=== PATIENT | female | born 1970 | race Caucasian/White ===

== ENCOUNTER 2020-08-14 19:28 | Inpatient (IN) ==
[2020-08-14] MEDS ORDERED: *HR* FentaNYL (PF) 100 MCG/2 ML VIAL ONE (19:41)
[2020-08-14] MEDS ORDERED: *HR* Midazolam HCl 2 MG/2 ML VIAL ONE (19:41)
[2020-08-14] MEDS ORDERED: Nitroglycerin 1,000 MCG/5 ML VIAL IV ONE (19:42)
[2020-08-14] MEDS ORDERED: ISOVUE-370 200 ML INFUS..BTL ONE ×2 (19:42→21:26)
[2020-08-14] MEDS ORDERED: Tirofiban 12.5 MG/250ML 12.5 MG/250 ML BAG ONE (19:42)
[2020-08-14] MEDS ORDERED: Heparin 1,000 UNITS/500 mL 500 ML ONE (19:42)
[2020-08-14] MEDS ORDERED: 0.9 % Sodium Chloride 2,000 ML ONE (19:42)
[2020-08-14] MEDS ORDERED: *HR* Heparin 10,000 UNIT/10 ML VIAL ONE (19:42)
[2020-08-14] MEDS ORDERED: Perflutren Lipid Microsphere 1.3 ML in 0.9 % Sodium Chloride 8.7 ML IVP PRN (20:37)
[2020-08-14] MEDS ORDERED: *HR* Amiodarone 150 MG/3 ML VIAL IVPB ONE (20:42)
[2020-08-14] MEDS ORDERED: Amiodarone Premix 360 MG/200 ML BAG IVC ONE (20:43)
[2020-08-14] MEDS ORDERED: Tirofiban 12.5 MG/250ML 12.5 MG/250 ML BAG IVC SCH (20:45)
[2020-08-14] MEDS: Amiodarone Premix 360 MG/200 ML BAG IVC ONE (20:57)
[2020-08-14] MEDS ORDERED: *HR* Atropine Sulfate 1 MG/10 ML SYRINGE ONE (21:09)
[2020-08-15] MEDS ORDERED: 0.9 % Sodium Chloride 1,000 ML ONE (00:48)
[2020-08-15] MEDS ORDERED: *HR* Atropine Sulfate 1 MG/10 ML SYRINGE ONE (00:49)
[2020-08-15] MEDS: Amiodarone Premix 360 MG/200 ML BAG IVC ONE (02:07)
[2020-08-15 04:11] LABS: Platelet Count 133 K/mcL (140-400)
[2020-08-15 04:13] LABS: Basophils # 0.1 K/mcL (0.0-0.2); Basophils % 0.6 %; Eosinophils # 0.1 K/mcL (0.0-0.6); Eosinophils % 1.5 %; Hematocrit 44.8 % (35.3-44.9); Hemoglobin 14.7 g/dL (11.5-15.4); Immature Granulocytes % 0.2 % (0-4); Immature Platelets 6.5 % (1.1-6.1); Lymphocytes # 2.9 K/mcL (0.6-4.6); Lymphocytes % 36.1 %; Mean Corpuscular HGB Conc 32.8 g/dL (31.6-35.5); Mean Corpuscular Hemoglobin 29.7 pg (28.0-33.3); Mean Corpuscular Volume 90.5 fL (83.0-100.0); Mean Platelet Volume 11.3 fL (9.4-12.4); Monocytes # 0.6 K/mcL (0.0-1.3); Monocytes % 6.9 %; Neutrophils # 4.4 K/mcL (1.6-8.9); Red Blood Count 4.95 M/mcL (3.82-4.97); Red Cell Distribution Width 13.3 % (11.5-14.5); Segmented Neutrophils % 54.7 %; White Blood Count 8.1 K/mcL (4.3-11.1)
[2020-08-15 04:31] LABS: BUN/Creatinine Ratio 20 (6-26); Blood Urea Nitrogen 13 mg/dL (6-20); Calcium 9.1 mg/dL (8.6-10.3); Carbon Dioxide 24 mEq/L (23-29); Chloride 103 mEq/L (98-107); Glucose 339 mg/dL (70-105); Osmolality,Calculated 291 (280-300); Potassium 3.8 mEq/L (3.5-5.1); Sodium 134 mEq/L (136-145); eGFR For African Americans > 60 (> 60); eGFR For Non-African Americans > 60 (> 60)
[2020-08-15] MEDS ORDERED: D5% in Water 1,000 ML IVC PRN (08:18)
[2020-08-15] MEDS ORDERED: Dextrose Gel 15 GM/37.5 ML TUBE PO PRN ×2 (08:18)
[2020-08-15] MEDS ORDERED: *HR* Dextrose 50 % in Water (Vial) 50 ML VIAL IVP PRN (08:18)
[2020-08-15] MEDS: Insulin LISPRO 300 UNITS/3 ML VIAL SUBQ SCH ×3 (08:38→16:34)
[2020-08-15] MEDS ORDERED: Aspirin desensitization 1 mg/ml PO ONE ×3 (09:45)
[2020-08-15] MEDS ORDERED: Aspirin 81 MG TAB.CHEW PO ONE (09:45)
[2020-08-15] MEDS ORDERED: Aspirin desensitization 4 mg/ml PO ONE ×4 (09:45)
[2020-08-15] MEDS: Amiodarone Premix 360 MG/200 ML BAG IVC SCH ×2 (09:55→14:18)
[2020-08-15] MEDS ORDERED: methylPREDNISolone 125 MG/2 ML VIAL ONE (10:37)
[2020-08-15] MEDS ORDERED: Albuterol 2.5 MG/3 ML NEBULIZER ONE (10:37)
[2020-08-15] MEDS ORDERED: EPINEPHrine 1 MG/ML VIAL ONE (10:37)
[2020-08-15] MEDS: carvediloL 6.25 MG TABLET PO SCH (16:32)
[2020-08-15] MEDS: Gabapentin 400 MG CAPSULE PO SCH ×2 (16:33→19:54)
[2020-08-15] MEDS ORDERED: Insulin LISPRO 300 UNITS/3 ML VIAL SUBQ SCH (21:00)
[2020-08-16] MEDS ORDERED: COENZYME Q10 100 MG PO SCH (09:00)
[2020-08-16] MEDS ORDERED: carvediloL 6.25 MG TABLET PO SCH (09:00)
[2020-08-16] MEDS ORDERED: Aspirin 81 MG TAB.CHEW PO SCH (09:00)
[2020-08-16] MEDS ORDERED: *HR* Heparin 5,000 UNIT/ML VIAL SQ SCH (09:00)
[2020-08-16] MEDS ORDERED: Loratadine 10 MG TABLET PO SCH (09:00)
[2020-08-16] MEDS ORDERED: Cholecalciferol (D-3) 1,000 UNIT (25MCG) TABLET PO SCH (09:00)
[2020-08-16] MEDS: Gabapentin 400 MG CAPSULE PO SCH ×4 (09:03→20:27)
[2020-08-16] MEDS: Insulin LISPRO 300 UNITS/3 ML VIAL SUBQ SCH ×3 (09:07→15:57)
[2020-08-16 09:47] LABS: Hemoglobin 14.3 g/dL (11.5-15.4); Mean Platelet Volume 11.1 fL (9.4-12.4)
[2020-08-16 09:49] LABS: Basophils # 0.1 K/mcL (0.0-0.2); Basophils % 0.8 %; Eosinophils # 0.1 K/mcL (0.0-0.6); Eosinophils % 1.2 %; Hematocrit 44.2 % (35.3-44.9); Immature Granulocytes % 0.4 % (0-4); Immature Platelets 7.6 % (1.1-6.1); Lymphocytes # 2.3 K/mcL (0.6-4.6); Lymphocytes % 26.7 %; Mean Corpuscular HGB Conc 32.4 g/dL (31.6-35.5); Mean Corpuscular Hemoglobin 29.9 pg (28.0-33.3); Mean Corpuscular Volume 92.3 fL (83.0-100.0); Monocytes # 0.6 K/mcL (0.0-1.3); Neutrophils # 5.5 K/mcL (1.6-8.9); Platelet Count 116 K/mcL (140-400); Red Blood Count 4.79 M/mcL (3.82-4.97); Red Cell Distribution Width 13.2 % (11.5-14.5); Segmented Neutrophils % 63.9 %; White Blood Count 8.6 K/mcL (4.3-11.1)
[2020-08-16] MEDS ORDERED: D5% in Water 1,000 ML IVC PRN (09:55)
[2020-08-16] MEDS ORDERED: Perflutren Lipid Microsphere 1.3 ML in 0.9 % Sodium Chloride 8.7 ML IVP PRN (09:55)
[2020-08-16] MEDS ORDERED: *HR* Dextrose 50 % in Water (Vial) 50 ML VIAL IVP PRN (09:55)
[2020-08-16] MEDS ORDERED: Dextrose Gel 15 GM/37.5 ML TUBE PO PRN ×2 (09:55)
[2020-08-16 10:15] LABS: BUN/Creatinine Ratio 21 (6-26); Blood Urea Nitrogen 15 mg/dL (6-20); Carbon Dioxide 24 mEq/L (23-29); Chloride 99 mEq/L (98-107); Glucose 446 mg/dL (70-105); Magnesium 1.6 mg/dL (1.6-2.6); Osmolality,Calculated 294 (280-300); Potassium 3.8 mEq/L (3.5-5.1); Sodium 132 mEq/L (136-145); eGFR For African Americans > 60 (> 60); eGFR For Non-African Americans > 60 (> 60)
[2020-08-16] MEDS: carvediloL 6.25 MG TABLET PO SCH ×2 (15:55→19:12)
[2020-08-16] MEDS: *HR* Heparin 5,000 UNIT/ML VIAL SQ SCH (18:06)
[2020-08-16] MEDS ORDERED: Insulin LISPRO 300 UNITS/3 ML VIAL SUBQ SCH (21:00)
[2020-08-17 05:08] VITALS: BP 120/70
[2020-08-17] MEDS: *HR* Heparin 5,000 UNIT/ML VIAL SQ SCH (05:50)
[2020-08-17] MEDS ORDERED: Cholecalciferol (D-3) 1,000 UNIT (25MCG) TABLET PO SCH (09:00)
[2020-08-17] MEDS ORDERED: Loratadine 10 MG TABLET PO SCH (09:00)
[2020-08-17] MEDS ORDERED: Aspirin 81 MG TAB.CHEW PO SCH (09:00)
[2020-08-17] MEDS: carvediloL 6.25 MG TABLET PO SCH (10:24)
[2020-08-17] MEDS: Gabapentin 400 MG CAPSULE PO SCH (10:25)
[2020-08-17] MEDS: Insulin LISPRO 300 UNITS/3 ML VIAL SUBQ SCH ×2 (10:31→12:17)
== END 2020-08-17 12:30 | disposition home or self-care (01) | DRG 174 ==
LOC: ICNU
PROVIDERS: ADMIT Internal Medicine Cardiovascular Disease; ATTEND Internal Medicine Cardiovascular Disease

== ENCOUNTER 2021-01-29 13:50 | Inpatient (IN) ==
[2021-01-29 16:37] LABS: Basophils % 0.6 %; Eosinophils # 0.1 K/mcL (0.0-0.6); Eosinophils % 1.2 %; Hematocrit 44.9 % (35.3-44.9); Hemoglobin 14.4 g/dL (11.5-15.4); Immature Granulocytes % 0.5 % (0-4); Lymphocytes # 2.2 K/mcL (0.6-4.6); Lymphocytes % 34.4 %; Mean Corpuscular HGB Conc 32.1 g/dL (31.6-35.5); Mean Corpuscular Hemoglobin 28.3 pg (28.0-33.3); Mean Corpuscular Volume 88.4 fL (83.0-100.0); Mean Platelet Volume 10.7 fL (9.4-12.4); Monocytes # 0.4 K/mcL (0.0-1.3); Monocytes % 5.6 %; Neutrophils # 3.7 K/mcL (1.6-8.9); Platelet Count 193 K/mcL (140-400); Red Blood Count 5.08 M/mcL (3.82-4.97); Red Cell Distribution Width 14.6 % (11.5-14.5); Segmented Neutrophils % 57.7 %; White Blood Count 6.4 K/mcL (4.3-11.1)
[2021-01-29 16:51] LABS: Alanine Aminotransferase 37 Units/L (7-52); Albumin 4.3 g/dL (3.5-5.7); Albumin/Globulin Ratio 0.9 (1.1-2.2); Alkaline Phosphatase 122 Units/L (34-104); Aspartate Amino Transferase 42 Units/L (13-39); BUN/Creatinine Ratio 20 (6-26); Bilirubin,Direct 0.1 mg/dL (0.0-0.2); Bilirubin,Indirect 0.3 mg/dL (0.0-1.0); Bilirubin,Total 0.4 mg/dL (0.3-1.0); Blood Urea Nitrogen 20 mg/dL (6-20); C-Reactive Protein < 5 mg/L (Less than 10); Carbon Dioxide 27 mEq/L (23-29); Chloride 94 mEq/L (98-107); Globulin 4.6 g/dL (2.4-3.5); Glucose 441 mg/dL (70-105); Osmolality,Calculated 294 (280-300); Potassium 4.6 mEq/L (3.5-5.1); Sodium 131 mEq/L (136-145); Total Protein 8.9 g/dL (6.4-8.9); eGFR For African Americans > 60 (> 60); eGFR For Non-African Americans 58 (> 60)
[2021-01-29] MEDS ORDERED: Gadolinium Contrast Agent (WT Based) IV PRN (17:11)
[2021-01-29] MEDS ORDERED: Piperacillin/Tazobactam 3.375 GM in 0.9 % Sodium Chloride Mini Bag 100 ML IVPB ONE (17:44)
[2021-01-29 18:39] LABS: Estimated Average Glucose 280 mg/dl; Hemoglobin A1C 11.4 %
[2021-01-29] MEDS ORDERED: Acetaminophen 325 MG TABLET PO PRN (20:32)
[2021-01-29] MEDS ORDERED: Naloxone 0.4 MG/ML INJ IVP PRN (20:32)
[2021-01-29] MEDS ORDERED: Melatonin 3 MG TABLET PO PRN (20:32)
[2021-01-29] MEDS ORDERED: Ondansetron ODT 4 MG TAB.RAPDIS SL PRN (20:32)
[2021-01-29] MEDS ORDERED: 0.9 % Sodium Chloride 1,000 ML IVC ONE (21:48)
[2021-01-29] MEDS ORDERED: *HR* Dextrose 50 % in Water (Syg) 50 ML SYRINGE IVP PRN (21:57)
[2021-01-29] MEDS ORDERED: D5% in Water 1,000 ML IVC PRN (21:57)
[2021-01-29] MEDS ORDERED: Dextrose Gel 15 GM/37.5 ML TUBE PO PRN ×2 (21:57)
[2021-01-29 22:48] LABS: Basophils % 0.7 %; Eosinophils # 0.1 K/mcL (0.0-0.6); Eosinophils % 2.3 %; Immature Granulocytes % 0.3 % (0-4); Lymphocytes # 2.4 K/mcL (0.6-4.6); Lymphocytes % 38.7 %; Mean Corpuscular HGB Conc 33.2 g/dL (31.6-35.5); Mean Corpuscular Hemoglobin 29.3 pg (28.0-33.3); Mean Corpuscular Volume 88.4 fL (83.0-100.0); Mean Platelet Volume 10.7 fL (9.4-12.4); Monocytes # 0.5 K/mcL (0.0-1.3); Monocytes % 7.9 %; Platelet Count 163 K/mcL (140-400); Red Cell Distribution Width 14.6 % (11.5-14.5); Segmented Neutrophils % 50.1 %; White Blood Count 6.1 K/mcL (4.3-11.1)
[2021-01-29 22:56] LABS: Hemoglobin 12.6 g/dL (11.5-15.4)
[2021-01-29 23:07] LABS: BUN/Creatinine Ratio 24 (6-26); Blood Urea Nitrogen 23 mg/dL (6-20); Calcium 9.1 mg/dL (8.6-10.3); Carbon Dioxide 27 mEq/L (23-29); Chloride 98 mEq/L (98-107); Glucose 428 mg/dL (70-105); Osmolality,Calculated 298 (280-300); Potassium 4.4 mEq/L (3.5-5.1); Sodium 133 mEq/L (136-145); eGFR For African Americans > 60 (> 60); eGFR For Non-African Americans > 60 (> 60)
[2021-01-29] MEDS: Vancomycin 1,500 MG/265 ML IV.SOLN IVPB SCH (23:54)
[2021-01-29] MEDS: cefTRIAXone 1,000 MG in Water for inj. (sterile) 10 ML IVP SCH (23:54)
[2021-01-30] MEDS: Insulin LISPRO 300 UNITS/3 ML VIAL SUBQ SCH ×5 (00:05→20:10)
[2021-01-30] MEDS: *HR* Heparin 5,000 UNIT/ML VIAL SQ SCH ×2 (06:06→17:17)
[2021-01-30] MEDS: Vancomycin 1,500 MG/265 ML IV.SOLN IVPB SCH ×2 (12:02→22:57)
[2021-01-30] MEDS: cefTRIAXone 1,000 MG in Water for inj. (sterile) 10 ML IVP SCH (22:56)
[2021-01-31 04:48] LABS: Basophils % 0.6 %; Eosinophils # 0.1 K/mcL (0.0-0.6); Eosinophils % 1.7 %; Hematocrit 38.4 % (35.3-44.9); Hemoglobin 12.2 g/dL (11.5-15.4); Immature Granulocytes % 0.6 % (0-4); Lymphocytes # 1.9 K/mcL (0.6-4.6); Lymphocytes % 36.6 %; Mean Corpuscular HGB Conc 31.8 g/dL (31.6-35.5); Mean Corpuscular Hemoglobin 28.6 pg (28.0-33.3); Mean Corpuscular Volume 89.9 fL (83.0-100.0); Mean Platelet Volume 10.9 fL (9.4-12.4); Monocytes # 0.4 K/mcL (0.0-1.3); Monocytes % 7.4 %; Neutrophils # 2.8 K/mcL (1.6-8.9); Platelet Count 152 K/mcL (140-400); Red Blood Count 4.27 M/mcL (3.82-4.97); Red Cell Distribution Width 14.6 % (11.5-14.5); Segmented Neutrophils % 53.1 %; White Blood Count 5.3 K/mcL (4.3-11.1)
[2021-01-31 04:59] LABS: INR 1.1; Prothrombin Time 12.5 Seconds (9.4-12.1)
[2021-01-31 05:06] LABS: BUN/Creatinine Ratio 26 (6-26); Blood Urea Nitrogen 18 mg/dL (6-20); Calcium 8.8 mg/dL (8.6-10.3); Carbon Dioxide 25 mEq/L (23-29); Chloride 102 mEq/L (98-107); Glucose 276 mg/dL (70-105); Osmolality,Calculated 290 (280-300); Potassium 4.1 mEq/L (3.5-5.1); Sodium 134 mEq/L (136-145); eGFR For African Americans > 60 (> 60); eGFR For Non-African Americans > 60 (> 60)
[2021-01-31] MEDS: *HR* Heparin 5,000 UNIT/ML VIAL SQ SCH ×2 (05:18→18:15)
[2021-01-31] MEDS: Insulin LISPRO 300 UNITS/3 ML VIAL SUBQ SCH ×3 (07:27→18:36)
[2021-01-31] MEDS: Vancomycin 1,750 MG/517.5 ML IV.SOLN IVPB SCH ×2 (11:20→23:11)
[2021-01-31] MEDS ORDERED: *HR* Heparin 10,000 UNIT/10 ML VIAL ONE (12:15)
[2021-01-31] MEDS ORDERED: 0.9 % Sodium Chloride 2,000 ML ONE (12:15)
[2021-01-31] MEDS ORDERED: Heparin 1,000 UNITS/500 mL 500 ML ONE (12:15)
[2021-01-31] MEDS ORDERED: *HR* FentaNYL (PF) 100 MCG/2 ML VIAL ONE ×2 (12:27→13:34)
[2021-01-31] MEDS ORDERED: *HR* Midazolam HCl 2 MG/2 ML VIAL ONE ×2 (12:28→13:34)
[2021-01-31] MEDS ORDERED: Ondansetron 4 MG/2 ML VIAL IVP PRN (14:12)
[2021-01-31] MEDS ORDERED: Insulin DETEMIR 100 UNIT/ML X5UNITS SUBQ SCH (21:00)
[2021-01-31] MEDS: cefTRIAXone 1,000 MG in Water for inj. (sterile) 10 ML IVP SCH (21:08)
[2021-02-01] MEDS: Insulin LISPRO 300 UNITS/3 ML VIAL SUBQ SCH ×4 (00:51→16:40)
[2021-02-01 05:36] LABS: Basophils # 0.1 K/mcL (0.0-0.2); Basophils % 0.9 %; Eosinophils # 0.1 K/mcL (0.0-0.6); Hematocrit 38.1 % (35.3-44.9); Hemoglobin 12.2 g/dL (11.5-15.4); Immature Granulocytes % 0.7 % (0-4); Lymphocytes # 1.5 K/mcL (0.6-4.6); Lymphocytes % 26.8 %; Mean Corpuscular Volume 90.5 fL (83.0-100.0); Mean Platelet Volume 10.7 fL (9.4-12.4); Monocytes # 0.5 K/mcL (0.0-1.3); Monocytes % 8.2 %; Neutrophils # 3.5 K/mcL (1.6-8.9); Platelet Count 143 K/mcL (140-400); Red Blood Count 4.21 M/mcL (3.82-4.97); Red Cell Distribution Width 14.6 % (11.5-14.5); Segmented Neutrophils % 61.4 %; White Blood Count 5.6 K/mcL (4.3-11.1)
[2021-02-01] MEDS: *HR* Heparin 5,000 UNIT/ML VIAL SQ SCH ×2 (06:16→16:39)
[2021-02-01] MEDS: Loratadine 10 MG TABLET PO SCH (08:54)
[2021-02-01] MEDS: lisinopriL 10 MG TABLET PO SCH (08:54)
[2021-02-01] MEDS: carvediloL 6.25 MG TABLET PO SCH ×2 (08:54→16:40)
[2021-02-01] MEDS: Aspirin 81 MG TAB.CHEW PO SCH (08:54)
[2021-02-01] MEDS ORDERED: [UNRECOGNIZED DRUG - REMARK] PO SCH (09:00)
[2021-02-01] MEDS ORDERED: Insulin DETEMIR 100 UNIT/ML X5UNITS SUBQ SCH (09:00)
[2021-02-01 09:24] LABS: BUN/Creatinine Ratio 17 (6-26); Blood Urea Nitrogen 11 mg/dL (6-20); Calcium 8.6 mg/dL (8.6-10.3); Carbon Dioxide 18 mEq/L (23-29); Chloride 105 mEq/L (98-107); Glucose 327 mg/dL (70-105); Osmolality,Calculated 294 (280-300); Sodium 136 mEq/L (136-145); eGFR For African Americans > 60 (> 60); eGFR For Non-African Americans > 60 (> 60)
[2021-02-01] MEDS: Fluticasone Propionate Nasal 50 MCG/SPRAY BOTTLE NS SCH (11:15)
[2021-02-01] MEDS: Vancomycin 1,750 MG/517.5 ML IV.SOLN IVPB SCH (11:15)
[2021-02-01] MEDS ORDERED: Insulin DETEMIR 100 UNIT/ML X5UNITS SUBQ ONE (15:03)
[2021-02-01] MEDS: cefTRIAXone 1,000 MG in Water for inj. (sterile) 10 ML IVP SCH (19:42)
[2021-02-02] MEDS: Vancomycin 1,750 MG/517.5 ML IV.SOLN IVPB SCH ×3 (00:30→22:50)
[2021-02-02] MEDS: Insulin LISPRO 300 UNITS/3 ML VIAL SUBQ SCH ×5 (00:32→19:04)
[2021-02-02] MEDS: *HR* Heparin 5,000 UNIT/ML VIAL SQ SCH ×2 (05:43→17:05)
[2021-02-02 06:26] LABS: Basophils % 0.4 %; Eosinophils # 0.1 K/mcL (0.0-0.6); Eosinophils % 2.4 %; Hematocrit 35.5 % (35.3-44.9); Hemoglobin 11.4 g/dL (11.5-15.4); Immature Granulocytes % 0.6 % (0-4); Lymphocytes # 1.6 K/mcL (0.6-4.6); Lymphocytes % 32.1 %; Mean Corpuscular HGB Conc 32.1 g/dL (31.6-35.5); Mean Corpuscular Hemoglobin 28.9 pg (28.0-33.3); Mean Corpuscular Volume 89.9 fL (83.0-100.0); Mean Platelet Volume 10.8 fL (9.4-12.4); Monocytes # 0.4 K/mcL (0.0-1.3); Monocytes % 8.5 %; Neutrophils # 2.8 K/mcL (1.6-8.9); Platelet Count 129 K/mcL (140-400); Red Blood Count 3.95 M/mcL (3.82-4.97); Red Cell Distribution Width 14.7 % (11.5-14.5)
[2021-02-02 06:45] LABS: BUN/Creatinine Ratio 23 (6-26); Blood Urea Nitrogen 14 mg/dL (6-20); Calcium 8.8 mg/dL (8.6-10.3); Carbon Dioxide 24 mEq/L (23-29); Chloride 104 mEq/L (98-107); Glucose 291 mg/dL (70-105); Osmolality,Calculated 291 (280-300); Potassium 3.7 mEq/L (3.5-5.1); Sodium 135 mEq/L (136-145); eGFR For African Americans > 60 (> 60); eGFR For Non-African Americans > 60 (> 60)
[2021-02-02] MEDS: lisinopriL 10 MG TABLET PO SCH (07:49)
[2021-02-02] MEDS: carvediloL 6.25 MG TABLET PO SCH ×2 (07:49→17:05)
[2021-02-02] MEDS: Aspirin 81 MG TAB.CHEW PO SCH (07:50)
[2021-02-02] MEDS: Loratadine 10 MG TABLET PO SCH (07:50)
[2021-02-02] MEDS: Fluticasone Propionate Nasal 50 MCG/SPRAY BOTTLE NS SCH (08:01)
[2021-02-02] MEDS ORDERED: Insulin DETEMIR 100 UNIT/ML X5UNITS SUBQ SCH ×2 (09:00)
[2021-02-02] MEDS: cefTRIAXone 1,000 MG in Water for inj. (sterile) 10 ML IVP SCH (20:42)
[2021-02-03 05:16] LABS: Basophils % 0.7 %; Eosinophils # 0.1 K/mcL (0.0-0.6); Eosinophils % 1.8 %; Hematocrit 34.8 % (35.3-44.9); Immature Granulocytes % 0.9 % (0-4); Lymphocytes # 1.7 K/mcL (0.6-4.6); Lymphocytes % 30.7 %; Mean Corpuscular HGB Conc 31.6 g/dL (31.6-35.5); Mean Corpuscular Hemoglobin 28.4 pg (28.0-33.3); Mean Corpuscular Volume 89.9 fL (83.0-100.0); Mean Platelet Volume 11.3 fL (9.4-12.4); Monocytes # 0.5 K/mcL (0.0-1.3); Monocytes % 8.1 %; Neutrophils # 3.3 K/mcL (1.6-8.9); Platelet Count 153 K/mcL (140-400); Red Blood Count 3.87 M/mcL (3.82-4.97); Red Cell Distribution Width 14.9 % (11.5-14.5); Segmented Neutrophils % 57.8 %; White Blood Count 5.7 K/mcL (4.3-11.1)
[2021-02-03] MEDS: *HR* Heparin 5,000 UNIT/ML VIAL SQ SCH ×2 (05:33→17:34)
[2021-02-03 05:56] LABS: BUN/Creatinine Ratio 21 (6-26); Blood Urea Nitrogen 15 mg/dL (6-20); Carbon Dioxide 25 mEq/L (23-29); Chloride 104 mEq/L (98-107); Glucose 304 mg/dL (70-105); Osmolality,Calculated 292 (280-300); Potassium 4.2 mEq/L (3.5-5.1); Sodium 135 mEq/L (136-145); eGFR For African Americans > 60 (> 60); eGFR For Non-African Americans > 60 (> 60)
[2021-02-03] MEDS: Insulin LISPRO 300 UNITS/3 ML VIAL SUBQ SCH ×4 (08:45→20:23)
[2021-02-03] MEDS: Torsemide 20 MG TABLET PO SCH (08:58)
[2021-02-03] MEDS: lisinopriL 10 MG TABLET PO SCH (08:58)
[2021-02-03] MEDS: Aspirin 81 MG TAB.CHEW PO SCH (08:59)
[2021-02-03] MEDS: carvediloL 6.25 MG TABLET PO SCH ×2 (08:59→17:50)
[2021-02-03] MEDS: Loratadine 10 MG TABLET PO SCH (08:59)
[2021-02-03] MEDS ORDERED: Insulin DETEMIR 100 UNIT/ML X5UNITS SUBQ SCH (09:00)
[2021-02-03] MEDS: Fluticasone Propionate Nasal 50 MCG/SPRAY BOTTLE NS SCH (09:07)
[2021-02-03] MEDS: Vancomycin 1,750 MG/517.5 ML IV.SOLN IVPB SCH ×2 (12:16→23:39)
[2021-02-03] MEDS ORDERED: Bupivacaine-MPF 0.25% 10 ML VIAL ONE (15:44)
[2021-02-03] MEDS ORDERED: Lidocaine 1% 20 ML MDV ONE (15:44)
[2021-02-03] MEDS ORDERED: Ringers Solution, Lactated 1,000 ML IVC SCH (15:45)
[2021-02-03] MEDS ORDERED: Lidocaine -MPF 2% 5 ML VIAL ONE (15:54)
[2021-02-03] MEDS: cefTRIAXone 1,000 MG in Water for inj. (sterile) 10 ML IVP SCH (20:26)
[2021-02-04] MEDS: *HR* Heparin 5,000 UNIT/ML VIAL SQ SCH (05:57)
[2021-02-04 08:17] LABS: Basophils % 0.4 %; Eosinophils # 0.1 K/mcL (0.0-0.6); Eosinophils % 1.5 %; Hematocrit 34.6 % (35.3-44.9); Hemoglobin 11.4 g/dL (11.5-15.4); Immature Granulocytes % 0.6 % (0-4); Lymphocytes # 1.4 K/mcL (0.6-4.6); Lymphocytes % 29.3 %; Mean Corpuscular HGB Conc 32.9 g/dL (31.6-35.5); Mean Corpuscular Hemoglobin 29.2 pg (28.0-33.3); Mean Corpuscular Volume 88.5 fL (83.0-100.0); Mean Platelet Volume 10.8 fL (9.4-12.4); Monocytes # 0.5 K/mcL (0.0-1.3); Monocytes % 10.7 %; Neutrophils # 2.7 K/mcL (1.6-8.9); Platelet Count 149 K/mcL (140-400); Red Blood Count 3.91 M/mcL (3.82-4.97); Red Cell Distribution Width 14.9 % (11.5-14.5); Segmented Neutrophils % 57.5 %; White Blood Count 4.7 K/mcL (4.3-11.1)
[2021-02-04 08:36] LABS: BUN/Creatinine Ratio 30 (6-26); Blood Urea Nitrogen 24 mg/dL (6-20); Calcium 8.9 mg/dL (8.6-10.3); Carbon Dioxide 28 mEq/L (23-29); Chloride 100 mEq/L (98-107); Glucose 385 mg/dL (70-105); Osmolality,Calculated 300 (280-300); Potassium 3.7 mEq/L (3.5-5.1); Sodium 135 mEq/L (136-145); eGFR For African Americans > 60 (> 60); eGFR For Non-African Americans > 60 (> 60)
[2021-02-04] MEDS ORDERED: Insulin DETEMIR 100 UNIT/ML X5UNITS SUBQ SCH (09:00)
[2021-02-04] MEDS: lisinopriL 10 MG TABLET PO SCH (10:16)
[2021-02-04] MEDS: Loratadine 10 MG TABLET PO SCH (10:16)
[2021-02-04] MEDS: Torsemide 20 MG TABLET PO SCH (10:16)
[2021-02-04] MEDS: Aspirin 81 MG TAB.CHEW PO SCH (10:16)
[2021-02-04] MEDS: carvediloL 6.25 MG TABLET PO SCH (10:16)
[2021-02-04] MEDS: Insulin LISPRO 300 UNITS/3 ML VIAL SUBQ SCH ×2 (10:17→11:35)
[2021-02-04] MEDS: Fluticasone Propionate Nasal 50 MCG/SPRAY BOTTLE NS SCH (10:19)
[2021-02-04] MEDS: Vancomycin 1,750 MG/517.5 ML IV.SOLN IVPB SCH ×2 (12:22→23:10)
[2021-02-04] MEDS ORDERED: ceFAZolin 2,000 MG in 0.9 % Sodium Chloride 100 ML IVPB ONE (15:10)
[2021-02-04] MEDS ORDERED: *HR* FentaNYL (PF) 100 MCG/2 ML VIAL ONE (15:11)
[2021-02-04] MEDS ORDERED: *HR* Propofol 200 MG/20 ML VIAL IVP ONE (15:11)
[2021-02-04] MEDS ORDERED: *HR* Midazolam HCl 2 MG/2 ML VIAL ONE (15:11)
[2021-02-04] MEDS ORDERED: Lidocaine -MPF 2% 5 ML VIAL ONE (15:12)
[2021-02-04] MEDS ORDERED: *HR* Succinylcholine 200 MG/10 ML VIAL IVP ONE (15:13)
[2021-02-04] MEDS ORDERED: Lidocaine HCL 4 ML Topical Solution (Laryng-O-Jet Kit Sterile Pak) TP ONE (15:14)
[2021-02-04] MEDS ORDERED: ceFAZolin 1,000 MG, Sodium Chloride IRRigation 1,000 ML IR ONE ×2 (15:20→21:31)
[2021-02-04] MEDS ORDERED: CeFAZolin Syr 2,000MG/20 ML 2,000 MG/20 ML SYRINGE IVPB ONE ×4 (15:30→21:31)
[2021-02-04] MEDS ORDERED: Heparin 1,000 UNITS/500 mL 500 ML ONE ×3 (16:14→16:23)
[2021-02-04] MEDS ORDERED: *HR* OxyCODONE Immed Rel 5 MG TABLET PO PRN ×2 (16:16→21:31)
[2021-02-04] MEDS ORDERED: *HR* HYDROmorphone PF 0.5 MG/0.5 ML SYRINGE IVP PRN ×2 (16:16→21:31)
[2021-02-04] MEDS ORDERED: Acetaminophen IV 1,000 MG/100 ML BAG IVPB ONE (16:23)
[2021-02-04] MEDS ORDERED: *HR* Rocuronium Bromide 50 MG/5 ML VIAL ONE (16:58)
[2021-02-04] MEDS ORDERED: Ondansetron 4 MG/2 ML VIAL ONE (17:07)
[2021-02-04] MEDS ORDERED: *HR* Heparin 5,000 UNIT/ML VIAL ONE (18:10)
[2021-02-04] MEDS ORDERED: Insulin Human Regular 10 UNIT in 0.9 % Sodium Chloride 10 ML IV ONE (20:24)
[2021-02-04] MEDS ORDERED: Naloxone 0.4 MG/ML INJ IVP PRN ×2 (21:31)
[2021-02-04] MEDS ORDERED: *HR* Dextrose 50 % in Water (Syg) 50 ML SYRINGE IVP PRN (21:31)
[2021-02-04] MEDS ORDERED: D5% in Water 1,000 ML IVC PRN (21:31)
[2021-02-04] MEDS ORDERED: Acetaminophen 325 MG TABLET PO PRN (21:31)
[2021-02-04] MEDS ORDERED: Ondansetron 4 MG/2 ML VIAL IVP PRN (21:31)
[2021-02-04] MEDS ORDERED: Dextrose Gel 15 GM/37.5 ML TUBE PO PRN ×2 (21:31)
[2021-02-04] MEDS ORDERED: Melatonin 3 MG TABLET PO PRN (21:31)
[2021-02-04] MEDS ORDERED: Ondansetron ODT 4 MG TAB.RAPDIS SL PRN (21:31)
[2021-02-04] MEDS: Ringers Solution, Lactated 1,000 ML IVC SCH (21:53)
[2021-02-04] MEDS ORDERED: cefTRIAXone 1,000 MG in Water for inj. (sterile) 10 ML IVP SCH (22:00)
[2021-02-05 04:14] LABS: Basophils % 0.3 %; Hematocrit 31.5 % (35.3-44.9); Hemoglobin 10.1 g/dL (11.5-15.4); Immature Granulocytes % 0.7 % (0-4); Lymphocytes # 0.9 K/mcL (0.6-4.6); Lymphocytes % 12.2 %; Mean Corpuscular HGB Conc 32.1 g/dL (31.6-35.5); Mean Corpuscular Hemoglobin 28.5 pg (28.0-33.3); Mean Platelet Volume 11.4 fL (9.4-12.4); Monocytes # 0.2 K/mcL (0.0-1.3); Monocytes % 3.2 %; Platelet Count 168 K/mcL (140-400); Red Blood Count 3.54 M/mcL (3.82-4.97); Red Cell Distribution Width 15.1 % (11.5-14.5); Segmented Neutrophils % 83.6 %
[2021-02-05 04:17] LABS: White Blood Count 7.2 K/mcL (4.3-11.1)
[2021-02-05 04:37] LABS: BUN/Creatinine Ratio 25 (6-26); Blood Urea Nitrogen 21 mg/dL (6-20); Calcium 8.3 mg/dL (8.6-10.3); Carbon Dioxide 27 mEq/L (23-29); Chloride 99 mEq/L (98-107); Glucose 402 mg/dL (70-105); Osmolality,Calculated 298 (280-300); Potassium 4.2 mEq/L (3.5-5.1); Sodium 134 mEq/L (136-145); eGFR For African Americans > 60 (> 60); eGFR For Non-African Americans > 60 (> 60)
[2021-02-05] MEDS: *HR* Heparin 5,000 UNIT/ML VIAL SQ SCH ×2 (05:54→16:57)
[2021-02-05] MEDS: Aspirin 81 MG TAB.CHEW PO SCH (07:54)
[2021-02-05] MEDS: lisinopriL 10 MG TABLET PO SCH (07:54)
[2021-02-05] MEDS: Loratadine 10 MG TABLET PO SCH (07:55)
[2021-02-05] MEDS: Torsemide 20 MG TABLET PO SCH (07:55)
[2021-02-05] MEDS: carvediloL 6.25 MG TABLET PO SCH ×2 (07:57→16:57)
[2021-02-05] MEDS: Fluticasone Propionate Nasal 50 MCG/SPRAY BOTTLE NS SCH (07:58)
[2021-02-05] MEDS: Insulin LISPRO 300 UNITS/3 ML VIAL SUBQ SCH ×3 (08:00→16:58)
[2021-02-05] MEDS ORDERED: Insulin DETEMIR 100 UNIT/ML X5UNITS SUBQ SCH (09:00)
[2021-02-05] MEDS: Vancomycin 1,750 MG/517.5 ML IV.SOLN IVPB SCH (11:15)
[2021-02-05] MEDS: Ringers Solution, Lactated 1,000 ML IVC SCH (13:15)
[2021-02-05] MEDS ORDERED: Insulin Regular, Human 100 UNIT/ML IV ONE (17:15)
[2021-02-05] MEDS ORDERED: Insulin Human Regular 4 UNIT in 0.9 % Sodium Chloride 10 ML IV ONE (18:19)
[2021-02-05] MEDS ORDERED: Insulin LISPRO 300 UNITS/3 ML VIAL SUBQ SCH (21:00)
[2021-02-06 05:05] LABS: Hematocrit 30.7 % (35.3-44.9); Hemoglobin 9.7 g/dL (11.5-15.4); Mean Corpuscular HGB Conc 31.6 g/dL (31.6-35.5); Mean Corpuscular Hemoglobin 28.7 pg (28.0-33.3); Mean Corpuscular Volume 90.8 fL (83.0-100.0); Mean Platelet Volume 11.7 fL (9.4-12.4); Platelet Count 159 K/mcL (140-400); Red Blood Count 3.38 M/mcL (3.82-4.97); Red Cell Distribution Width 15.6 % (11.5-14.5); White Blood Count 6.9 K/mcL (4.3-11.1)
[2021-02-06] MEDS: *HR* Heparin 5,000 UNIT/ML VIAL SQ SCH (06:14)
[2021-02-06 06:18] LABS: BUN/Creatinine Ratio 31 (6-26); Blood Urea Nitrogen 28 mg/dL (6-20); Calcium 8.3 mg/dL (8.6-10.3); Carbon Dioxide 27 mEq/L (23-29); Chloride 101 mEq/L (98-107); Glucose 354 mg/dL (70-105); Osmolality,Calculated 304 (280-300); Potassium 3.8 mEq/L (3.5-5.1); Sodium 137 mEq/L (136-145); eGFR For African Americans > 60 (> 60); eGFR For Non-African Americans > 60 (> 60)
[2021-02-06] MEDS ORDERED: Insulin DETEMIR 100 UNIT/ML X5UNITS SUBQ SCH (09:00)
[2021-02-06] MEDS: carvediloL 6.25 MG TABLET PO SCH (11:13)
[2021-02-06] MEDS: lisinopriL 10 MG TABLET PO SCH (11:13)
[2021-02-06] MEDS: Aspirin 81 MG TAB.CHEW PO SCH (11:13)
[2021-02-06] MEDS: Torsemide 20 MG TABLET PO SCH (11:14)
[2021-02-06] MEDS: Loratadine 10 MG TABLET PO SCH (11:14)
[2021-02-06] MEDS: Insulin LISPRO 300 UNITS/3 ML VIAL SUBQ SCH (11:20)
[2021-02-06] MEDS: Fluticasone Propionate Nasal 50 MCG/SPRAY BOTTLE NS SCH (11:21)
[2021-02-06 11:31] VITALS: BP 121/67; PULSE 84; TEMP 97.9; O2SAT 96
== END 2021-02-06 15:40 | disposition home health service (06) | DRG 314 ==
LOC: EMEROOARM 13:50 → 4WAOSI 13:50 → SUATTDRO 18:23 → 4WAOSI 18:50 → SUATTDRO 01-30 11:04 → 4WAOSI 02-02 09:29 → 2NNU 02-04 21:30 → 4WAOSI 02-05 20:41
PROVIDERS: ADMIT Hospitalist; ATTEND Internal Medicine
PROC: VASFFBG (ICD-10-PCS; 2021-02-04 15:20)